=== PATIENT | female | born 1990 ===

== ENCOUNTER → 2018-06-26 | Emergency (ER) | payer OTHER ==
[~2018-06-26] VITALS: Ht 152.4 cm; Wt 90.9 kg
[~2018-06-26] MED LIST: MACROBID 1100 MG/CAP PO; MOTRIN 800800 MG/TAB PO; PERCOCET 325 MG1 TA2 PO; PRENATAL1 TA7 PO
[2018-06-26 03:33] VITALS: TEMP 98
[2018-06-26 04:06] LABS: COLLECTION METHOD CLEAN CATCH
[2018-06-26 04:14] LABS: BASO # 0.1 (0.0-0.2); BASO % 0.4 % (0.0-2.0); EOS # 0.2 (0.0-0.7); EOS % 1.3 % (0-4.0); GRAN # 10.2 (1.4-6.5); GRAN % 74.9 % (42.2-75.2); HEMATOCRIT 38.5 % (37.0-47.0); HEMOGLOBIN 13.3 g/dl (12.5-16.0); LYMPH # 2.5 (1.2-3.4); LYMPH % 18.4 % (20.0-51.0); MEAN CELL VOLUME 84 fl (80.0-100.0); MEAN CORPUSCULAR HEMOGLOBIN 29 pg (27.0-31.0); MEAN CORPUSCULAR HGB CONC 35 g/dl (33.0-37.0); MEAN PLATELET VOLUME 11.1 fl (7.4-10.4); MONO # 0.6 (0.1-0.6); MONO % 4.6 % (1.7-9.3); PLATELET COUNT 185 K/mm3 (130-400); RED BLOOD COUNT 4.59 M/mm3 (4.10-5.30); REDCELL DISTRIBUTION WIDTH-CV 12.2 % (11.5-14.5)
[2018-06-26 04:15] LABS: MUCOUS Present /lpf; PH 6 (5-8); URINE APPEARANCE Hazy; URINE BACTERIA Many /hpf; URINE BILIRUBIN Negative (NEGATIVE); URINE BLOOD 1+ (NEGATIVE); URINE COLOR Yellow; URINE GLUCOSE Negative (NEGATIVE); URINE KETONE Negative (NEGATIVE); URINE LEUKOCYTE ESTERASE Negative (NEGATIVE); URINE NITRATE Negative (NEGATIVE); URINE PROTEIN(semi-quant) Negative (NEGATIVE); URINE UROBILINOGEN Negative (NEGATIVE)
[2018-06-26 04:26] LABS: BILIRUBIN,TOTAL 0.6 mg/dL (0.0-1.0); CALCIUM 9.1 mg/dL (8.4-10.2); CREATININE, serum 0.6 mg/dL (0.52-1.25); POTASSIUM 4.2 mmol/L (3.4-5.0); TOTAL PROTEIN 7.4 gm/dL (6.4-8.2)
[2018-06-26 05:58] VITALS: BP 122/71; PULSE 79
== END ==
LOC: COL.ER 03:31
PROVIDERS: Emergency Medicine
DX: O23.41 Unspecified infection of urinary tract in pregnancy, first trimester (principal); Z3A.11 11 weeks gestation of pregnancy
CPT/HCPCS: J0696; J2405; J2765; J3010; J7030

== ENCOUNTER 2021-02-10 07:08 | Inpatient (IN) | payer BC ==
[2021-02-10] VITALS (45 sets, daily range): BP systolic 112–165; BP diastolic 53–100; PULSE 65–100; TEMP 97.5–98.1
[~2021-02-10] VITALS: Ht 175.3 cm; Wt 95.9 kg
--- NOTE | 2021-02-10 07:15 | NUR ---
Patient ambulatory onto unit with at side for scheduled induction of labor. Patient changes into gown, oriented to room, plan of care discussed. Patient reports good movement and irregular contractions. Denies vaginal bleeding or leaking of fluid. EFMs on. VS taken. IV started by [place] RN in left hand, labs drawn. LR infusing per protocol. Assessment completed. Consents signed. Pitocin started per protocol. Questions answered. Call light within reach.
[2021-02-10] MEDS ORDERED: TYLENOL 500MG500 MG PO (07:21)
[2021-02-10 07:39] LABS: BASO % 0.4 % (0.0-2.0); EOS # 0.1 (0.0-0.7); EOS % 1.1 % (0-4.0); GRAN # 6.2 (1.4-6.5); GRAN % 63.8 % (42.2-75.2); HEMOGLOBIN 11.6 g/dl (12.5-16.0); LYMPH # 2.7 (1.2-3.4); LYMPH % 27.7 % (20.0-51.0); MEAN CELL VOLUME 83 fl (80.0-100.0); MEAN CORPUSCULAR HEMOGLOBIN 27 pg (27.0-31.0); MEAN CORPUSCULAR HGB CONC 32 g/dl (33.0-37.0); MEAN PLATELET VOLUME 13.5 fl (7.4-10.4); MONO # 0.6 (0.1-0.6); MONO % 6.4 % (1.7-9.3); PLATELET COUNT 145 K/mm3 (130-400); RED BLOOD COUNT 4.35 M/mm3 (4.10-5.30); REDCELL DISTRIBUTION WIDTH-CV 13.1 % (11.5-14.5)
[2021-02-10 07:53] LABS: HEMATOCRIT 35.9 % (37.0-47.0)
--- NOTE | 2021-02-10 08:23 | NUR ---
to bedside. Plan of care discussed. Questions answered. SVE /-3, AROM at 0823, moderate amount of clear fluid noted.
--- NOTE | 2021-02-10 09:40 | NUR ---
Patient requesting epidural placement. Will notify Alicia FULTON.
--- NOTE | 2021-02-10 10:15 | NUR ---
1008: Alicia FULTON at bedside for epidural placement. Patient sitting up at edge of bed. 1013: Lidocaine. 1014: Single Shot given by Alicia FULTON, no adverse reactions noted. 1015: Epidural Catheter placed. 1020: Patient repositioned to left tilt. Will continue to monitor.
--- NOTE | 2021-02-10 10:50 | NUR ---
Patient comfortable with epidural. Abarca catheter placed. SVE 3-4/75/-3. Difficulty confirming vertex due to station and anterior cervix. SVE verified by Raoul TREVIZO. Patient repositioned to right lateral with peanut ball in place.
--- NOTE | 2021-02-10 12:55 | NUR ---
to bedside. SVE /-2 per provider.
--- NOTE | 2021-02-10 13:20 | NUR ---
Patient repositioned to right lateral with left leg in stirrup. Encouraged to rest. Denies needs at this time.
--- NOTE | 2021-02-10 13:55 | NUR ---
Patient reports pressure with contractions and would like to reposition. SVE /-2 per this RN. Patient repositioned to left lateral with peanut ball in place.
--- NOTE | 2021-02-10 15:00 | NUR ---
SVE /-2 per Kenyetta RN, bloody show noted on exam glove. Patient repositioned to high fowlers with peanut ball in place. Patient denies pain or needs. Will continue to monitor. Call light within reach.
--- NOTE | 2021-02-10 15:55 | NUR ---
Patient repositioned to far left lateral with right leg on peanut ball. "Runners position". Patient denies pain or needs at this time. Call light within reach.
--- NOTE | 2021-02-10 16:50 | NUR ---
1624: SVE Complete/-1. 1625: notified, requested on unit for delivery. 1630: at bedside. Abarca catheter dc'd. 1634: Initial push. 1637: Spontaneous vaginal delivery of viable female assisted by over 2nd degree perineal laceration. Pitocin off. Infant care assumed by Whit TREVIZO. 1639: Spontaneous vaginal delivery of placenta. Fundus firm, lochia WNL. Pitocin infusing at 333ml/hr per protocol. 2nd degree perineal laceration repaired using 2-[address]-1. 1650: Recovery period started. Fundus firm. Lochia WNL.
--- NOTE | 2021-02-10 18:20 | NUR ---
Report to Kika TREVIZO to assume care of patient at this time.
[2021-02-11] VITALS: BP 121/66; PULSE 79; TEMP 97.6
[2021-02-11 04:15] VITALS: BP 123/72; PULSE 79; TEMP 98.7
[2021-02-11 08:14] VITALS: BP 113/62; PULSE 80; TEMP 97.8
[2021-02-11 12:32] VITALS: BP 130/77; PULSE 78
[2021-02-11 16:31] VITALS: BP 130/77; PULSE 90; TEMP 97.6
[2021-02-11 20:20] VITALS: BP 139/75; PULSE 88; TEMP 98.6
[2021-02-12 07:45] VITALS: BP 130/57; PULSE 74; TEMP 98.5
[2021-02-12] MEDS ORDERED: PERCOCET 325 MG1 TA2 PO (08:46)
[2021-02-12] MEDS ORDERED: IBU800 M1 PO (08:46)
== END 2021-02-12 10:50 | disposition home or self-care (01) | DRG 807 ==
LOC: LDR 07:08 → OB 08:54
PROVIDERS: ADMIT Obstetrics & Gynecology
PROC: 10E0XZZ Delivery of Products of Conception, External Approach (ICD-10-PCS; principal; 2021-02-10)
PROC: 0KQM0ZZ Repair Perineum Muscle, Open Approach (ICD-10-PCS; 2021-02-10)
PROC: 10907ZC Drainage of Amniotic Fluid, Therapeutic from Products of Conception, Via Natural or Artificial Opening (ICD-10-PCS; 2021-02-10)
PROC: 3E033VJ Introduction of Other Hormone into Peripheral Vein, Percutaneous Approach (ICD-10-PCS; 2021-02-10)
DX: O99.02 Anemia complicating childbirth (principal); Z37.0 Single live birth; D64.9 Anemia, unspecified; O70.1 Second degree perineal laceration during delivery; Z3A.39 39 weeks gestation of pregnancy
CPT/HCPCS: J2590; J2795; J7120